=== PATIENT | female | born 1955 | race Caucasian/White ===

== ENCOUNTER 2017-04-17 06:42 | Day surgery (SDC) | payer BC ==
[2017-04-17 07:04] VITALS: BMI 29.2
[2017-04-17] MEDS ORDERED: Simethicone 40 mg/0.6 ml Liquid (30 ml) ONE (07:47)
--- NOTE | 2017-04-17 07:50 | CP.SDSHP ---
Same Day Surgery H & P - History Proposed Procedure: Colonoscopy/EUS Pre-Op Diagnosis: Pneumatosis intestinalis - Allergies Allergies: Allergies No Known Allergies Allergy (Verified 11/08/12 08:00) - Physical Exam General Appearance: nl Vital Signs: Vital Signs 04/17/17 07:14 Temperature 97.5 F L Pulse Rate 67 Respiratory 16 Rate Blood Pressure 132/64 Mental Status: Alert & Oriented x3 Neuro: WNL Heart: WNL Lungs: WNL GI: WNL - {Optional Preform as Required} Abdomen: WNL - Impression Impression: Pneumatosis intestinalis Pt. Evaluated Today:Candidate for Anesthesia & Procedure: Yes - Date & Time Date: 04/17/17 Time: 07:50 Short Stay Discharge - Short Stay Discharge Admitting Diagnosis/Reason for Visit: DISEASED INTESTINE Disposition: HOME/ ROUTINE
[2017-04-17] MEDS ORDERED: Midazolam 2 MG/2 ML VIAL ONE (07:52)
[2017-04-17] MEDS ORDERED: Propofol 10 mg/ml Inj (20 ML) ONE ×2 (07:52→08:25)
[2017-04-17 09:02] VITALS: TEMP 98.2; O2SAT 100
[2017-04-17 09:16] VITALS: RESP 14
[2017-04-17 10:05] VITALS: BP 122/63; PULSE 54
== END 2017-04-17 09:55 | disposition home or self-care (01) ==
LOC: C.ENDO 06:42
PROVIDERS: ATTEND Internal Medicine
DX: K63.89 Other specified diseases of intestine (principal); K63.9 Disease of intestine, unspecified; R10.84 Generalized abdominal pain; K64.8 Other hemorrhoids; I10 Essential (primary) hypertension; M19.90 Unspecified osteoarthritis, unspecified site; Z90.710 Acquired absence of both cervix and uterus
CPT/HCPCS: 45380; 45391; 88305; J2250; J2704

== ENCOUNTER 2018-05-01 08:24 | Outpatient (CLI) | payer BC | END 2018-05-01 08:25 | disposition home or self-care (01) | LOC: C.CTH 08:24 | DX: K76.0 Fatty (change of) liver, not elsewhere classified (principal); R10.32 Left lower quadrant pain; K57.32 Diverticulitis of large intestine without perforation or abscess without bleeding ==

== ENCOUNTER 2018-06-28 11:42 | Outpatient (CLI) | payer BC | END 2018-06-28 11:43 | disposition home or self-care (01) | LOC: C.MAMMO 11:42 | DX: D24.2 Benign neoplasm of left breast (principal) ==